=== PATIENT | male | born 1965 | race Caucasian/White ===

== ENCOUNTER 2023-07-30 10:18 | Emergency (ER) | payer BC, SELFPAY ==
[2023-07-30 10:19] VITALS: BMI 33.0
[2023-07-30 10:24] VITALS: BP 144/92
--- NOTE | 2023-07-30 11:26 | ED.GENMED ---
History of Present Illness
General
Chief Complaint: Breathing Problem
Source: patient and family
Exam Limitations: none
Time Seen by Provider: 07/30/23 10:42
Nursing documentation reviewed up to this point in time: agreed with
Travel History
Have you had any contact with someone who has COVID-19?: No
Do you have any symptoms of coronavirus? Fever > 100 degrees, chills, cough, shortness of breath, sore throat, loss of taste or smell, muscle aches, or headache?: No
History of Present Illness
History of Present Illness:
Patient with history of metastatic lung cancer, presents to ED secondary to worsening left chest pain with shortness of breath over the past 2 weeks. Patient's last chemotherapy was 2 weeks ago as well. Patient is scheduled for immunotherapy in 1
week. Denies fever or chills. Denies nausea, vomiting, or diarrhea. Denies headache. Denies blurred vision. Denies dizziness. Patient is currently taking methadone as well as oxycodone at home, with minimal relief in symptoms. Patient was
admitted to the hospital 2 months ago for similar complaint, requiring inpatient pain management. Patient spoke with his oncologist who advised patient come to ED for an evaluation and treatment, including blood work and CT chest.
Past History
Past History
ED Past Medical History: Cancer
ED Past Surgical History: Other (Lung biopsy)
Social History
Tobacco: Former smoker
Alcohol: Occasional
Drug: None
Personal:
Living: with family
Employment: Employed
Family History
Family History: Other (Noncontributory)
Review of Systems
Review of Systems
Allergies reviewed?: Yes
All Other Systems: ROS reviewed and negative except as documented in HPI and ROS
Constitutional: Reports no symptoms; Denies fever
EENT: Reports no symptoms
Respiratory: Reports cough and trouble breathing
Cardiac: Reports chest pain; Denies diaphoresis or palpitations
ABD/GI: Reports no symptoms; Denies abdominal pain, vomiting or diarrhea
: Reports no symptoms
Musculoskeletal: Reports no symptoms
Skin: Reports no symptoms
Neurological: Reports weakness; Denies dizzy or headache
Phy Exam
Physical Exam
Physical Exam:
Physical Exam
General: mild painful distress, not acutely ill. afebrile
Head: nc/at. eomi
Neck: supple. no meningeal signs.
Heart: s1/s2 regular rate and rhythm, no murmur. equal radial pulses.
Lungs: no acute respiratory distress. clear bilaterally
Abdomen: normal bowel sounds. not tender.
Neuro: alert and oriented. no focal neurological deficits
Skin: no rash
Psychiatric: well kept. interactive and cooperative
Extremities: no edema. no calf tenderness.
Scores
Heart Failure Risk
Heart Failure Risk Score: Not Applicable
Course
Orders/Labs/Results
Orders:
Orders
07/30/23 10:28
EKG [Electrocardiogram (*1)] Urgent
Reason for Study: Chest Pain
07/30/23 10:29
EKG- Treatment ONCE
07/30/23 11:03
CT Chest Angio W/wo Iv Contras Urgent
Comment:
Reason For Exam: Left CP with known lung cancer
07/30/23 11:04
HYDROmorphone [Dilaudid] 1 mg IV NOW STA
Ketorolac [Toradol] 15 mg IV NOW STA
07/30/23 11:05
0.9% Sodium Chloride 1000 ml [Nss] 1,000 ml IV BOLUS
07/30/23 11:34
Complete Blood Count/With Diff Urgent
Comprehensive Metabolic Panel Urgent
Magnesium Urgent
Alprazolam [Xanax] 0.5 mg PO NOW STA
07/30/23 14:33
HYDROmorphone [Dilaudid] 0.5 mg IV NOW STA
07/30/23 14:52
Heparin Pf [Heparin Lock Flush] 500 unit .ROUTE .STK-MED ONE
Abnormal Lab Results
07/30/23
11:34
RBC 4.37 L 10^6/uL
(4.70-6.10)
Hgb 12.1 L g/dL
(13.0-18.0)
Hct 35.9 L %
(39.0-52.0)
Absolute Lymphs (auto) 0.7 L 10^3/uL
(1.2-3.4)
Neutrophils % 76.8 H %
(42.2-75.2)
Lymphocytes % 11.5 L %
(20.5-51.1)
BUN 24 H mg/dl
(9-20)
Creatinine 0.5 L mg/dL
(0.7-1.3)
Glucose 103 H mg/dl
(70-99)
ALT 54 H U/L
(0-50)
07/30/23 11:34
07/30/23 11:34
Vital Signs
Initial and Last Documented VS:
Initial Vital Signs
Temp Pulse Resp BP Pulse Ox
97.5 F 108 22 144/92 98
07/30/23 10:24 07/30/23 10:24 07/30/23 10:24 07/30/23 10:24 07/30/23 10:24
Last Documented Vital Signs
Temp Pulse Resp BP Pulse Ox
97.5 F 85 11 136/83 96
07/30/23 10:24 07/30/23 15:00 07/30/23 15:00 07/30/23 14:00 07/30/23 15:00
MDM/Problems Addressed
MDM/Problems Addressed:
CT report reviewed and discussed with patient and family. Loculated pleural fluid, chronic per family.
Patient reports significant improvement symptoms after treatment. Patient remains afebrile, hemodynamically stable, and without any acute respiratory distress. Patient will be discharged home in stable condition at this time, with prescription for
short course of Dilaudid, not to be taken together with OxyContin at home. Patient given copy of CT scan on disc, and he will follow-up with his primary oncologist for further evaluation.
*EKG
Interpreted by ED Provider?: Yes
EKG Intrepretation Date: 07/30/23
Heart Rate: 100
Rate: normal
Rhythm: sinus
*Critical Care Note
Total Time (30-74mins, 75-104mins- exclusive of procedures): Not Applicable
ED Attending Note
-
Portions of this chart may have been created with voice recognition software.� Occasional wrong word or��sound alike� substitutions may have occurred due to the inherent limitations of voice recognition software.
Discharge Plan
Departure
Patient Disposition: Home (Routine Discharge)
Date of Disposition: 07/30/23
Time of Disposition: 14:49
Patient with high blood pressure during this ER visit?: Yes
Condition: Good
Discharge Problem:
Chest wall pain, Lung cancer
Instructions: Lung Cancer (DC)
Prescriptions:
New
hydromorphone [Dilaudid] 2 mg tablet
2 mg PO Q6H PRN (Reason: Pain) Qty: 14 0RF
No Action
multivitamin [One Daily] 1 EACH tablet
1 ea PO DAILY
L.acidoph, paracasei,B. lactis 1 EACH capsule
1 ea PO DAILY
oxycodone-acetaminophen 5 MG/325 MG tablet
1 tab PO Q4HPRN PRN (Reason: pain) Qty: 20 0RF
Referrals:
PRIVATE,PHYSICIAN [Family Provider] -
Activity Restrictions/Additional Instructions:
As discussed, please follow-up with your oncologist for continual evaluation and treatment. Your prescription has been sent electronically to [facility] pharmacy in [place].
Interventions
Interventions:
*Risk Screen - Suicide Last Done: 07/30/23 10:24
*General Assessment Last Done: 07/30/23 10:24
*Neglect/Abuse Screening Last Done: 07/30/23 10:24
ED- Fall Risk Assessment Last Done: 07/30/23 15:01
*ED COVID-19 Vaccine History Last Done: 07/30/23 11:57
*Nursing Disposition Last Done: 07/30/23 15:01
ED- Cardiac Assessment Last Done: 07/30/23 11:57
ED- Pulmonary Assessment Last Done: 07/30/23 11:57
Discharge Date and Time
Discharge Date/Time: 07/30/23 15:02
Print Language: [id number]
[2023-07-30] MEDS: DILAUDID 1 MG IV (11:34)
[2023-07-30] MEDS: NSS 1000 IV (11:35)
[2023-07-30] MEDS: TORADOL 15 MG IV (11:35)
[2023-07-30] MEDS: XANAX 0.5 MG PO (11:38)
[2023-07-30 11:45] LABS: % Basophils 0.5 % (0-2); % Eosinophils 1.6 % (0-6); % Immature Granulocytes 0.3 % (0-0.5); % Lymphocytes 11.5 % (20.5-51.1); % Monocytes 9.3 % (1.7-9.3); % Neutrophils 76.8 % (42.2-75.2); Absolute Eosinophils 0.1 10^3/uL (0-0.7); Absolute Lymphocytes 0.7 10^3/uL (1.2-3.4); Absolute Monocytes 0.6 10^3/uL (0.1-0.6); Absolute Neutrophils 4.7 10^3/uL (1.4-6.5); Hematocrit 35.9 % (39.0-52.0); Hemoglobin 12.1 g/dL (13.0-18.0); Mean Corp Hgb Conc. 33.7 g/dL (33.0-37.0); Mean Corpuscular Hgb 27.7 pg (27.0-31.0); Mean Corpuscular Volume 82.2 fL (80.0-94.0); Mean Platelet Volume 9.6 fL (7.4-10.4); Nucleated Red Blood Cells % 0 % (-); Platelet Count 234 10^3/uL (130-400); Red Blood Cell Count 4.37 10^6/uL (4.70-6.10); Red Cell Dist. Width 13.3 % (11.5-14.5); White Blood Cell Count 6.2 10^3/uL (4.8-10.8)
[2023-07-30 11:50] VITALS: BP 124/92
[2023-07-30 13:02] LABS: ALT (SGPT) 54 U/L (0-50); AST (SGOT) 55 U/L (17-59); Albumin 4.3 g/dl (3.5-5.0); Alkaline Phosphatase 105 U/L (38-126); Blood Urea Nitrogen 24 mg/dl (9-20); Carbon Dioxide 28 mmol/L (22-30); Chloride 102 mmol/L (98-107); Estimated Creatinine Clearance > 125 ml/min; Glucose 103 mg/dl (70-99); Magnesium 1.9 mg/dl (1.6-2.3); Potassium 4.5 mmol/L (3.5-5.1); Sodium 136 mmol/L (135-145); Total Bilirubin 0.5 mg/dl (0.2-1.3); Total Protein 7.3 g/dl (6.3-8.2); eGFR > 60.00
[2023-07-30 13:50] VITALS: BP 128/84
[2023-07-30 14:00] VITALS: BP 136/83
[2023-07-30] MEDS: DILAUDID 0.5 MG IV (14:41)
== END 2023-07-30 15:02 | disposition home or self-care (01) ==
LOC: EMR 10:18
PROVIDERS: EMERGENCY PHYSICIAN Emergency Medicine
DX: R07.89 Other chest pain (principal); C34.90 Malignant neoplasm of unspecified part of unspecified bronchus or lung; Z87.891 Personal history of nicotine dependence; R03.0 Elevated blood-pressure reading, without diagnosis of hypertension
CPT/HCPCS: 99285; 96374; 96375; 96376; 96361; 71275; 80053; 83735; 85025; 93005; Q9967